=== PATIENT | female | born 1990 | race Caucasian/White ===

== ENCOUNTER 2017-02-02 22:16 | Emergency (ER) | payer OTHER ==
--- NOTE | 2017-02-02 22:25 | EDPHY ---
H & P Source: Patient Exam Limitations: No limitations - Personal History LMP (Females 10-55): Now - Medical/Surgical History Hx Asthma: No Hx Chronic Respiratory Disease: No Hx Diabetes: No Hx Cardiac Disease: No Hx Renal Disease: No Hx Cirrhosis: No Hx Alcoholism: No Hx HIV/AIDS: No Hx Splenectomy or Spleen Trauma: No Other PMH: depression/ADD, chronic pain, hypermobility, ovarian cysts - Social History Smoking Status: Never smoked Time Seen by Provider: 02/02/17 22:24 HPI/ROS: HPI: This is a 26-year-old female who presents with Chief Complaint: Lower abdominal pain Location: Lower abdomen Quality: Pain Duration: 3 hours Signs and Symptoms: no fever, + nausea, no vomiting, no hematemesis, no blood in stool, no abdominal bloating, no diarrhea, no back pain, no urinary symptoms , no testicular/groin pain, no indigestion, no chest pain, no shortness of breath Timing: Acute Severity: 01/08 Context: Patient has a history of depression, chronic pain, ovarian stone, kidney stones, endometriosis that presents at 7:00 p.m. approximately 3 and 0.5 hours ago of sharp lower abdominal constant severe nonradiating pain accompanied by nausea but no vomiting. Patient reports that she had a bowel movement this morning and then 3 days prior. Patient was seen in this ED 2015 for right upper quadrant abdominal pain and diagnosed with a 2 mm right UVJ calculus with [id number] hydronephrosis. Patient advises her last colonoscopy was approximately 2 years ago at the [facility] and essentially normal. Modifying Factors: EMS gave patient on route to 100 mcg of IV fentanyl and started IV fluids Comment: ROS: see HPI Constitutional: No fever, no chills, no weight loss Eyes: No blurred vision Respiratory: No shortness of breath, no cough Cardiovascular: No chest pain, no palpitations Gastrointestinal: + nausea, no vomiting, no diarrhea, no hematemesis, no blood in stool Genitourinary: No dysuria, no blood in urine Extremities: No myalgias, no edema Neurologic: No weakness, no numbness Skin: No rashes, no petechiae Hematologic: No bruising, no bleeding MEDICAL/SURGICAL/SOCIAL HISTORY: Medical history: depression/ADD, chronic pain, hypermobility, ovarian cysts, kidney stones, endometriosis Surgical history: Laparoscopy for diagnosis of endometriosis Social history: CONSTITUTIONAL: Young adult white female, nontoxic in appearance, awake and alert, moderate distress HEENT: Atraumatic and normocephalic, PERRL, EOMI. Tympanic membranes clear. Oropharynx clear, no exudate and moist pink mucosa. Airway patent. No lymphadenopathy. No meningismus. Cardiovascular: Normal S1/S2, regular rate, regular rhythm, without murmur rub or gallop. PULMONARY/CHEST: Symmetrical and nontender. Clear to auscultation bilaterally. Good air movement. No accessory muscle usage. ABDOMEN: Soft, nondistended, lower moderate reproducible abdominal tenderness, no rebound, no guarding, no peritoneal signs, no masses or organomegaly. No CVAT. EXTREMITIES: 2/2 pulses, strength 5/5, no deformities, no clubbing, no cyanosis or edema. NEUROLOGICAL: no focal neuro deficits. GCS 15. SKIN: Warm and dry, no erythema. no rash. Good capillary refill. (Doreen Sue) Constitutional: Initial Vital Signs Temperature (C) 36.4 C 02/02/17 22:28 Heart Rate 90 02/02/17 22:28 Respiratory Rate 16 02/02/17 22:28 Blood Pressure 129/78 H 02/02/17 22:28 O2 Sat (%) 100 02/02/17 22:28 O2 Delivery Mode Room Air O2 (L/minute) 2 Allergies/Adverse Reactions: latex Allergy (Verified 02/02/17 22:28) Home Medications: Medication Instructions Recorded Amphet Asp and D/Amphet [Adderall 11/08/15 20 mg (*)] Isotretinoin [Absorica] 11/08/15 Sertraline HCl [Zoloft 100mg (*)] 11/08/15 buPROPion [Wellbutrin 100mg (*)] 100 mg PO TID 11/08/15 Hydrocodone/APAP 5/325 [[place] 1 - 2 tab PO Q4H PRN #20 tab 02/02/16 5/325] Ondansetron Odt [Zofran Odt 4 mg 4 mg PO Q4 PRN #6 tab 02/02/16 (*)] Robaxin 500 mg (*) 02/02/17 Medical Decision Making - Diagnostics Imaging Results: Imaging Impressions Abdomen/Pelvis CT 02/02/17 22:28 Impression: 1. Constipation. 2. Relative lack of colonic haustration , which could be related to distention from stool or sequela of chronic inflammation such as ulcerative colitis. 3. Additional findings as above. Findings discussed with Doreen Sue 02/02/2017 at 23:17. Attention: This CT examination is specifically designed to evaluate patients who are clinically suspected of having acute obstructive uropathy. This examination does not use radiographic contrast, and as such, provides only a limited evaluation of the abdomen, pelvis and retroperitoneum. If there is further clinical suspicion for pathological conditions other than obstructive uropathy, a complete CT evaluation of the abdomen and pelvis utilizing intravenous and oral contrast should be considered. ED Course/Re-evaluation: Labs, IV fluids, CT abdomen and pelvis scan, IV medication ordered Patient is afebrile without systemic signs. 2119: called by radiologist and notes no appendicitis, kidney stone, colitis, obstruction, pancreatitis, + moderate constipation. Labs reviewed and grossly unremarkable Offered patient magnesium citrate, Dulcolax suppository which she has politely declined. She wishes to use his oral stool softeners and MiraLax for more gentle resolution of the problem. 2330: Reassessed patient who is abdomen is soft and nontender at this time Urinalysis shows no signs of infection and specific gravity normal. Advised push fluids, increase fiber with fruits and vegetables, MiraLax and stool softeners (Doreen Sue) PHYSICIAN DOCUMENTATION: The patient was evaluated and managed by the Physician Hot Metal Mixer Operator. My co- signature indicates that I have reviewed this chart and I agree with the findings and plan of care as documented. I am the secondary supervising physician. (Queta Pena) Differential Diagnosis: Abdominal pain in a female including but not limited to ovarian cyst, pelvic inflammatory disease, ovarian torsion, urinary tract infection, and appendicitis. (Doreen Sue) - Data Points Laboratory Results: Laboratory Results 02/02/17 22:20 02/02/17 22:20 02/02/17 02/02/17 02/02/17 23:55 22:20 22:20 WBC RBC Hgb Hct MCV MCH MCHC RDW Plt Count MPV Neut % (Auto) Lymph % (Auto) [place] % (Auto) Eos % (Auto) Baso % (Auto) Nucleat RBC Rel Count Absolute Neuts (auto) Absolute Lymphs (auto) Absolute Monos (auto) Absolute Eos (auto) Absolute Basos (auto) Absolute Nucleated RBC Immature Gran % Immature Gran # Sodium 139 mEq/L mEq/L (134-144) Potassium 3.5 mEq/L mEq/L (3.5-5.2) Chloride 102 mEq/L mEq/L (97-110) Carbon Dioxide 23 mEq/l mEq/l (22-31) Anion Gap 14 mEq/L mEq/L (8-16) BUN 16 mg/dL mg/dL (7-23) Creatinine 1.0 mg/dL mg/dL (0.6-1.0) Estimated GFR > 60 Glucose 99 mg/dL mg/dL (70-100) Calcium 9.3 mg/dL mg/dL (8.5-10.4) Beta HCG, Qual NEGATIVE Urine Color YELLOW Urine Appearance CLEAR Urine pH 5.0 (5.0-7.5) Ur Specific [place] 1.020 (1.002-1.030) Urine Protein NEGATIVE (NEGATIVE) Urine Ketones NEGATIVE (NEGATIVE) Urine Blood NEGATIVE (NEGATIVE) Urine Nitrate NEGATIVE (NEGATIVE) Urine Bilirubin NEGATIVE (NEGATIVE) Urine Urobilinogen NEGATIVE EU EU (0.2-1.0) Ur Leukocyte Esterase NEGATIVE (NEGATIVE) Urine Glucose NEGATIVE (NEGATIVE) 02/02/17 22:20 WBC 11.38 10^3/uL H 10^3/uL (3.80-9.50) RBC 4.72 10^6/uL 10^6/uL (4.18-5.33) Hgb 14.3 g/dL g/dL (12.6-16.3) Hct 41.6 % % (38.0-47.0) MCV 88.1 fL fL (81.5-99.8) MCH 30.3 pg pg (27.9-34.1) MCHC 34.4 g/dL g/dL (32.4-36.7) RDW 13.3 % % (11.5-15.2) Plt Count 267 10^3/uL 10^3/uL (150-400) MPV 9.0 fL fL (8.7-11.7) Neut % (Auto) 74.6 % H % (39.3-74.2) Lymph % (Auto) 15.6 % % (15.0-45.0) [place] % (Auto) 8.6 % % (4.5-13.0) Eos % (Auto) 0.5 % L % (0.6-7.6) Baso % (Auto) 0.4 % % (0.3-1.7) Nucleat RBC Rel Count 0.0 % % (0.0-0.2) Absolute Neuts (auto) 8.49 10^3/uL H 10^3/uL (1.70-6.50) Absolute Lymphs (auto) 1.78 10^3/uL 10^3/uL (1.00-3.00) Absolute Monos (auto) 0.98 10^3/uL H 10^3/uL (0.30-0.80) Absolute Eos (auto) 0.06 10^3/uL 10^3/uL (0.03-0.40) Absolute Basos (auto) 0.04 10^3/uL 10^3/uL (0.02-0.10) Absolute Nucleated RBC 0.00 10^3/uL 10^3/uL (0-0.01) Immature Gran % 0.3 % % (0.0-1.1) Immature Gran # 0.03 10^3/uL 10^3/uL (0.00-0.10) Sodium Potassium Chloride Carbon Dioxide Anion Gap BUN Creatinine Estimated GFR Glucose Calcium Beta HCG, Qual Urine Color Urine Appearance Urine pH Ur Specific [place] Urine Protein Urine Ketones Urine Blood Urine Nitrate Urine Bilirubin Urine Urobilinogen Ur Leukocyte Esterase Urine Glucose Medications Given: Discontinued Medications Sodium Chloride (Ns) 1,000 mls @ 0 mls/hr IV ONCE ONE; Wide Open PRN Reason: Protocol Stop: 02/02/17 22:29 Last Admin: 02/02/17 22:49 Dose: 1,000 mls Ketorolac Tromethamine (Toradol) 30 mg IVP EDNOW ONE Stop: 02/02/17 22:29 Last Admin: 02/02/17 22:44 Dose: 30 mg Ondansetron HCl (Zofran) 4 mg IVP EDNOW ONE Stop: 02/02/17 22:29 Last Admin: 02/02/17 22:44 Dose: 4 mg Departure - Departure Disposition: Home, Routine, Self-Care Clinical Impression: Constipation Qualifiers: Constipation type: unspecified constipation type Qualified Code(s): K59.00 - Constipation, unspecified Condition: Good Instructions: Constipation (ED), High Fiber Diet (ED) Additional Instructions: Please take MiraLax daily until having daily soft bowel movements. Drink at least 8 8 oz glasses of water daily. Please increase her fiber in her diet including fruits and vegetables. Follow up with Gastroenterology if symptoms persist or worsen. Referrals: [facility],. [Clinic] - As per Instructions
[2017-02-02] MEDS ORDERED: NS 1,000 ML IV ONE (22:28)
[2017-02-02] MEDS ORDERED: ONDANSETRON 4 MG/2 ML VIAL IVP ONE (22:28)
[2017-02-02] MEDS ORDERED: KETOROLAC 30 MG/1 ML SDV IVP ONE (22:28)
[2017-02-02 22:36] LABS: PLATELET COUNT 267 10^3/uL (150-400)
[2017-02-03 00:24] VITALS: BP 125/84; PULSE 78; RESP 17; TEMP 98.2; O2SAT 96
== END 2017-02-03 00:24 | disposition home or self-care (01) ==
LOC: EDUNIT#
PROC: 3E0337Z Introduction of Electrolytic and Water Balance Substance into Peripheral Vein, Percutaneous Approach (ICD-10-PCS; principal; 2017-02-02)
DX: K59.00 Constipation, unspecified (principal); E86.9 Volume depletion, unspecified; Z91.040 Latex allergy status
CPT/HCPCS: 96374; J1885; J2405